=== PATIENT | male | born 1950 | race African-American/Black ===

== ENCOUNTER 2016-12-29 15:25 | Emergency (ER) | payer MEDICARE, OTHER ==
[~2016-12-29] VITALS: Ht 152.4 cm; Wt 74.8 kg
[2016-12-29] MEDS ORDERED: CYCL10TA2 PO (15:42)
[2016-12-29] MEDS ORDERED: NAPR500T PO (15:42)
--- NOTE | 2016-12-29 15:43 | PHYS DOC ---
Adult General Chief Complaint Chief Complaint: Neck Pain HPI HPI Patient is a 66 year old male presents to the emergency department with complaints of left-sided neck pain. Patient states he was lifting a cooler on December and feels that is the point he strained his neck. Patient states that he felt somewhat better yesterday but again today the pain increased and he is here now seeking evaluation. He denies headache, sore throat, fever, lightheadedness, dizziness. Review of Systems Review of Systems Constitutional: Denies fever or chills [] Eyes: Denies change in visual acuity, redness, or eye pain [] HENT: Denies nasal congestion or sore throat [] Respiratory: Denies cough or shortness of breath [] Cardiovascular: No additional information not addressed in HPI [] GI: Denies abdominal pain, nausea, vomiting, bloody stools or diarrhea [] : Denies dysuria or hematuria [] Musculoskeletal: Neck pain Integument: Denies rash or skin lesions [] Neurologic: Denies headache, focal weakness or sensory changes [] Endocrine: Denies polyuria or polydipsia [] Physical Exam Physical Exam Constitutional: Well developed, well nourished, no acute distress, non-toxic appearance. [] HENT: Normocephalic, atraumatic, bilateral external ears normal, oropharynx moist, no oral exudates, nose normal. [] Eyes: PERRLA, EOMI, conjunctiva normal, no discharge. [] Neck: Normal range of motion, mild tenderness left paracervical muscles extending into the left trapezius. No Midline tenderness. No meningeal signs. Cardiovascular:Heart rate regular rhythm, no murmur [] Lungs & Thorax: Bilateral breath sounds clear to auscultation [] Abdomen: Bowel sounds normal, soft, no tenderness, no masses, no pulsatile masses. [] Skin: Warm, dry, no erythema, no rash. [] Back: No tenderness, no CVA tenderness. [] Extremities: No tenderness, no cyanosis, no clubbing, ROM intact, no edema. [] Neurologic: Alert and oriented X 3, normal motor function, normal sensory function, no focal deficits noted. Cranial nerves II through XII grossly intact Psychologic: Affect normal, judgement normal, mood normal. [] EKG EKG [] Radiology/Procedures Radiology/Procedures [] Course & Med Decision Making Course & Med Decision Making Pertinent Labs and Imaging studies reviewed. (See chart for details) [] Dragon Disclaimer Dragon Disclaimer This electronic medical record was generated, in whole or in part, using a voice recognition dictation system. Departure Departure Impression: Primary Impression: Cervical muscle strain Disposition: 01 HOME, SELF-CARE Condition: STABLE Patient Instructions: Cervical Strain and Sprain with [facility] Scripts Naproxen (NAPROSYN) 500 Mg Tablet 1 TAB PO BID, #20 TAB 1 Refill Prov: SARAH STEINBERG APRN 12/29/16 Cyclobenzaprine Hcl (CYCLOBENZAPRINE HCL) 10 Mg Tablet 1 TAB PO TID, #30 TAB Prov: SARAH STEINBERG APRN 12/29/16 SARAH STEINBERG APRN Dec 29, 2016 15:43
[2016-12-29 15:50] VITALS: BP 184/100
[2016-12-29] MEDS ORDERED: ORPHENADRINE CITRATE 60 MG/2 ML VIAL. IM ONE (16:00)
[2016-12-29] MEDS ORDERED: KETOROLAC TROMETHAMINE 60 MG/2 ML INJ. IM ONE (16:00)
== END 2016-12-29 15:50 | disposition home or self-care (01) ==
LOC: ER 15:25
DX: S16.1XXA Strain of muscle, fascia and tendon at neck level, initial encounter (principal); X58.XXXA Exposure to other specified factors, initial encounter; Y93.89 Activity, other specified; Y92.89 Other specified places as the place of occurrence of the external cause; Y99.8 Other external cause status
CPT/HCPCS: 96372; 99284; J1885; J2360